=== PATIENT | female | born 1980 | race Two or more races ===

== ENCOUNTER → 2020-06-28 | Outpatient (CLI) | payer OTHER, SELFPAY ==
[2020-07-04 14:42] LABS: HPV Reflexed? NOT INDICATED
== END | disposition home or self-care (01) ==
LOC: LABSPEC 14:15
PROVIDERS: Visit Provider Obstetrics & Gynecology
DX: Z12.4 Encounter for screening for malignant neoplasm of cervix (principal)
CPT/HCPCS: 88175; G0145

== ENCOUNTER 2025-05-04 17:12 | Emergency (ER) | payer OTHER, SELFPAY ==
[2025-05-04 17:14] VITALS: BP 112/70; PULSE 73; RESP 20; TEMP 36.7; O2SAT 83; BMI 35.8
[2025-05-04 17:19] VITALS: O2SAT 97
--- NOTE | 2025-05-04 17:21 | ED.VIS.CHEST ---
HPI History of Present Illness Chief Complaint: Chest Pain [facility] Medical History (Updated 05/04/25 @ 21:[address] Reuben Lin, DO) DVT (deep venous thrombosis) Home Medications ?Medication ?Instructions ?Recorded ?Last Taken ?Type metoclopramide HCl 5 mg tablet 5 mg PO Q8H PRN nausea and 05/04/25 Unknown Rx (Reglan) vomiting 4 days #12 tabs oxycodone 5 mg tablet 5 mg PO Q8H PRN pain 4 days #16 05/04/25 Unknown Rx tabs Allergy/AdvReac Type Severity Reaction Status Date / Time acetaminophen (From Tylenol) Allergy Hives Verified 05/04/25 17:18 Social History Smoking Status: Never smoker EXAM Physical Exam Const Vital Signs: 05/04/25 17:14 05/04/25 17:19 05/04/25 17:21 Temperature 98.1 F Temperature Source Oral Pulse Rate 73 Respiratory Rate 20 H Respiratory Effort Normal Non-Labored Blood Pressure 112/70 Blood Pressure Mean 84 Pulse Ox 83 97 Oxygen Delivery Method Room Air Room Air Oxygen Flow Rate (L/min) 05/04/25 17:42 05/04/25 18:10 05/04/25 19:00 Temperature Temperature Source Pulse Rate 80 65 Respiratory Rate 25 H 18 Respiratory Effort Blood Pressure 136/80 H 130/99 H Blood Pressure Mean 98 109 Pulse Ox 98 95 Oxygen Delivery Method Nasal Cannula Room Air Room Air Oxygen Flow Rate (L/min) 2 05/04/25 20:00 05/04/25 21:00 05/04/25 22:19 Temperature Temperature Source Pulse Rate 79 71 Respiratory Rate 17 16 Respiratory Effort Blood Pressure 130/99 H 125/80 H Blood Pressure Mean 109 95 Pulse Ox 95 95 Oxygen Delivery Method Room Air Room Air Oxygen Flow Rate (L/min) MDM MDM MDM Narrative Medical decision making narrative: HISTORY OF PRESENT ILLNESS: Chief complaint: Chest pain 44-year-old female history of DVT (missed Eliquis doses recently) presents with chest pain. She states she had sharp chest pain. Midsternal. Not exertional. This began approximately an hour prior to arrival. No recent cough fever or chills. No recent lower extremity edema, orthopnea or paroxysmal nocturnal dyspnea notes history of DVT but denies history of PE. Notes family history of PE denies estrogen use, hemoptysis, unilateral leg swelling, recent surgery or immobilization. Denies any bleeding diathesis. States she status post hysterectomy and has not had a period since this procedure. This was remote several years ago. Notes her last DVT was 5 years ago. REVIEW OF SYSTEMS: Pertinent positives: Chest pain Pertinent negatives: PHYSICAL EXAM: Nursing triage notes reviewed, Vital signs reviewed Constitutional: please see [facility] HENT: MMM Eyes: Pupils equal round and reactive to light, Extraocular muscles intact Neck: No stridor, no JVD, full neck ROM Lungs: Clear to auscultation, No wheezing or rales. No increased work of breathing, no conversational dyspnea, no accessory muscle use, no nasal flaring. No respiratory distress noted Heart: Regular rate and rhythm, No murmurs, No rubs and No gallops, 2+ distal pulses (radial, femoral, posterior tibial) in all extremities Abdomen: Soft, epigastric TTP but no rigidity, rebound or guarding, no obvious peritoneal signs, no palpable pulsatile abdominal masses, no auscultated abdominal bruit : No CVAT Extremities: No edema Neuro: No new focal neurological deficits, cranial nerves II through XII intact, 5/5 strength in all present extremities. Intact sensation to light touch in all present extremities, 2+ reflexes bilateral patella tendons. Skin: No rash or lesions noted MEDICAL DECISION MAKING: Chief Complaint: please see HPI External records reviewed: Reviewed prior cardiovascular testing Factors affecting care: DVT Social determinants of health: denies drug use History obtained from others: EMS per EMS IV was obtained and patient received aspirin, fentanyl nitro and Zofran and route Consults: none [facility] Narrative: The patient was initially hemodynamically stable, afebrile and nontoxic-appearing exam without focal cardiopulmonary normalities. No stigmata of aortic dissection, VTE, heart failure initial exam I considered the following differential diagnosis: ACS, arrhythmia, anemia, electrolyte disturbance, PE, aortic dissection, CHF, pneumothorax, pericarditis I obtained a broad lab and imaging workup to further determine if the patient was suffering from a life-threatening etiology. Did not treat the patient with additional medications initially as she had already received aspirin, Zofran, fentanyl and nitroglycerin per EMS. ALL IMAGES (IF OBTAINED) HAVE BEEN PERSONALLY REVIEWED AND INTERPRETED BY MYSELF. Initial EKG showed normal sinus rhythm rate of 67, normal axis, normal intervals, noted T wave inversions in 3 and aVF. High-sensitivity troponin is negative, no evidence of myocardial ischemiax2 CT of the chest no sign of acute PE, showed pancreatic inflammation CT scan abdomen pelvis shows acute pancreatic the patient no necrosis, abscess or mass Lipase grossly elevated consistent with acute pancreatitis BNP within norm limits no signs of heart failure CBC with leukocytosis suggestive of systemic inflammation, no anemia or thrombocytopenia BMP without evidence of significant electrolyte abnormalities, no anion gap, no acute kidney injury. The synthesis of the patient's history, physical exam, labs images suggest acute pancreatitis. Patient's pain improved after morphine. Nausea improved after Reglan. Upon reassessment and p.o. challenge patient was able to tolerate p.o. Patient's pain was well-controlled. Repeat abdominal exam remains benign. She was motivated to go home. Discussed risk and benefits of home-going versus admission. Patient agrees to return if symptoms change or worsen specifically with vomiting and severe pain. Strict return precaution will be discussed. Follow-up instructions discussed. Prescribed oxycodone via meds to beds. The patient and/or family, caregivers express understanding. The patient and/or family, caregivers agrees with the plan. Shared decision making: I will have a discussion with the patient and or visitors regarding risk/benefits of further testing or admission. They will be made aware of of the risk/benefits inherent in this decision they will be given the opportunity to voice understanding. Total critical care time today provided was at least 0 minutes. This excludes separately billable procedures. Critical care time (if documented) is secondary to the patient having high probability of clinically significant/life threatening deterioration in the patient's condition which required my urgent intervention. Impression: 1. Chest pain 2. History of DVT 3. Acute pancreatitis 4. Nausea vomiting Dispo: Discharge home This note was generated with [employer] dictation software. It may contain incorrect words, spelling, and punctuation that were not noted in review of the chart prior to signing. Lab Data Labs: Laboratory Results - last 24 hr 05/04/25 05/04/25 05/04/25 17:25 19:35 21:20 WBC 14.2 H RBC 4.95 Hgb 14.5 Hct 43.6 MCV 88.1 MCH 29.3 MCHC 33.3 RDW Std Deviation 42.9 RDW Coeff of Elina 13.3 Plt Count 297 MPV 10.0 Immature Gran % (Auto) 0.400 Neut % (Auto) 55.8 Lymph % (Auto) 34.1 Scott % (Auto) 8.4 Eos % (Auto) 1.1 Baso % (Auto) 0.2 Absolute Neuts (auto) 7.9 H Absolute Lymphs (auto) 4.85 H Nucleated RBC % 0 Sodium 142 Potassium 3.7 Chloride 103 Carbon Dioxide 26.7 Anion Gap 12 BUN 17 Creatinine 0.77 Estim Creat Clear Calc 105.61 Est GFR (MDRD) Non-Af 96 BUN/Creatinine Ratio 22.2 H Glucose 146 H Calcium 10.8 Troponin T High Sens < 6 Troponin T Hi Sens 2 Hr < 6 Troponin T Hi Sens 4Hr 8 NT pro BNP II 56 Lipase > 3000 H Radiography Diagnostic Testing: Clinical Impression(s) from Imaging Studies Chest CTA 05/04/25 17:33 IMPRESSION: No acute pulmonary emboli. No focal consolidations. Extensive inflammation about the pancreas concerning for acute pancreatitis. Consider CTAP for further evaluation. Left thyroid heterogenous lesion measuring 2.6 x 2.5 cm; consider dedicated thyroid ultrasound under nonemergent outpatient basis. Dr. Lin was notified by Shanon Lawrence at 7 pm EST on 05/04/25. Reading Location: [facility] Abdomen/Pelvis CT 05/04/25 20:30 IMPRESSION: Extensive inflammation and stranding about the pancreas concerning for acute pancreatitis. No abscess or necrosis is noted at this time although contrast phasing is not optimized to evaluate for pancreatic pathology. Reading Location: [facility] Discharge Plan Triage Chief Complaint: Chest Pain ED Provider: Reuben Lin Dx/Rx/DC Orders Instructions: Pancreatitis Acute Dc Prescriptions: New metoclopramide HCl [Reglan] 5 mg tablet 5 mg PO Q8H PRN (Reason: nausea and vomiting) 4 Days Qty: 12 0RF oxycodone 5 mg tablet 5 mg PO Q8H PRN (Reason: pain) 4 Days Qty: 16 0RF Primary Care Provider: Donna Allan NP Referrals: Donna Allan NP, COLLISION TECHNICIAN-C [Primary Care Provider] - Activity Restrictions/Additional Instructions: Thank you for trusting us with your care today! Your presentation is consistent with acute pancreatitis. This is inflammation of your pancreas. This is treated with bowel rest including fasting and a slow return to normal diet. Recommend first a clear liquid diet. Then eat food as tolerated Please take Tylenol (2 pills, 650 mg), ibuprofen (2 pills, 400 mg) every 6 hours as needed for pain and fever control. Please return to the emergency department if your symptoms change or worsen. Please follow with your primary care physician for further outpatient evaluation and management. Print Language: Citizen Of [place] Disposition Disposition: Home, Self Care
--- NOTE | 2025-05-04 17:33 | CT_ITS ---
PROCEDURE: CTA CHEST W/WO CONTRAST 05/04/2025 REASON FOR EXAM: CHEST PAIN HX OF DVT TECHNIQUE: Procedure Code: CTCTACHWW Modality: CT Procedure: CTA CHEST W/WO CONTRAST Multiplanar Sagittal and Coronal images were obtained. CONTRAST: 100 mL of Isovue 370 One or more dose reduction techniques were used (e.g., Automated exposure control, adjustment of the mA and/or kV according to patient size, use of iterative reconstruction technique). RADIATION DOSE SUMMARY: DLP: 465 mGycm COMPARISON: none FINDINGS: PULMONARY ARTERIES: No evidence of pulmonary embolism. LUNGS AND PLEURA: No consolidations. No definite pulmonary edema. No mass or nodule. No pleural effusion. No pneumothorax. MEDIASTINUM: No lymphadenopathy or mass. The heart shows no acute findings. The aorta shows no acute findings. The pulmonary trunk, and branches of the vessels in the mediastinum are within normal limits. SUPRACLAVICULAR AND AXILLARY: No abnormalities seen in these regions. No mass or significant lymphadenopathy. UPPER ABDOMEN: Extensive inflammation about the pancreas concerning for acute pancreatitis. Gallbladder is surgically removed. Small hiatal hernia. BONES AND SOFT TISSUES: The ribs are unremarkable. The visualized spine shows no significant acute findings. No focal bony mass lesions noted. Left thyroid heterogenous lesion measuring 2.[address]/CTA Chest W/WO Contrast IMPRESSION: No acute pulmonary emboli. No focal consolidations. Extensive inflammation about the pancreas concerning for acute pancreatitis. C onsider CTAP for further evaluation. Left thyroid heterogenous lesion measuring 2.6 x 2.5 cm; consider dedicated thy roid ultrasound under nonemergent outpatient basis. Dr. Lin was notified by Shanon Lawrence at 7 pm EST on 05/04/25. Reading Location: [facility]
--- NOTE | 2025-05-04 17:33 | EKG12_ITS ---
Test Reason : CHEST PAIN Blood Pressure : */* mmHG Vent. Rate : 67 BPM Atrial Rate : 67 BPM P-R Int : 142 ms QRS Dur : 78 ms QT Int : 390 ms P-R-T Axes : 36 40 -2 degrees QTcB Int : 412 ms Normal sinus rhythm Normal ECG Confirmed by Leonard Chawla ([id number]), editorial manager RAHUL AMEZQUITA ([id number]) on 05/06/2025 6:45:12 AM Referred By: Confirmed By: Leonard Chawla
[2025-05-04 18:04] LABS: Hematocrit 43.6 % (37-47); Hemoglobin 14.5 g/dL (12.0-15.0); Immature Granulocytes Count 0.060 X10^3/uL (0.0-0.0); Mean Corp Hgb Conc 33.3 g/dL (32-36); Mean Corpuscular Volume 88.1 fL (81-99); Mean Platelet Vol. 10.0 fl (6.2-12.0); NRBC Flagged by Analyzer 0 % (0-5); Platelet Count 297 K/mm3 (150-450); RBC Distribution Width CV 13.3 % (11.6-14.6); RBC Distribution Width SD 42.9 fl (35.1-43.9); Red Blood Count 4.95 M/mm3 (4.2-5.4); White Blood Count 14.2 K/mm3 (4.4-11.0)
[2025-05-04 18:10] VITALS: BP 136/80; PULSE 80; RESP 25; O2SAT 98
[2025-05-04 18:19] LABS: BUN 17 mg/dL (4-19); Glucose 146 mg/dL (70-99)
[2025-05-04 18:20] LABS: Anion Gap 12 (5-15); BUN/Creat Ratio 22.2 RATIO (10-20); Calcium,Total 10.8 mg/dL (7.6-11.0); Carbon Dioxide 26.7 mmol/L (21.0-32.0); Chloride 103 mmol/L (98-108); Estimated Creatinine Clearance 105.61 ml/min (50-250); Potassium 3.7 mmol/L (3.3-5.1); Pro- Brain NATRIURETIC PEPTIDE 56 pg/mL (<=450); Troponin T High Sensitivity < 6 ng/L (<=14)
[2025-05-04 19:00] VITALS: BP 130/99; PULSE 65; RESP 18; O2SAT 95
[2025-05-04 20:00] VITALS: BP 130/99; PULSE 79; RESP 17; O2SAT 95
[2025-05-04 20:11] LABS: Lipase > 3000 U/L (13-75)
--- NOTE | 2025-05-04 20:30 | CT_ITS ---
PROCEDURE: ABDOMEN/PELVIS WITHOUT CONT 05/04/2025 REASON FOR EXAM: ABDOMINAL PAIN, CONCERN FOR ACUTE PANCREATITIS TECHNIQUE: Procedure Code: CTABDPEL Modality: CT Procedure: ABDOMEN/PELVIS WITHOUT CONT Noncontrast technique limits evaluation of the abdominal and pelvic viscera. Coronal and Sagittal reconstruction series were provided. One or more dose reduction techniques were used (e.g., Automated exposure control, adjustment of the mA and/or kV according to patient size, use of iterative reconstruction technique). RADIATION DOSE SUMMARY: DLP: 598 mGycm COMPARISON: none FINDINGS: Limited sections of the lung bases demonstrate no focal pulmonary mass or consolidations. The liver, spleen, and both adrenal glands demonstrate no acute findings. Extensive inflammation and stranding about the pancreas concerning for acute pancreatitis. No abscess or necrosis is noted at this time although contrast phasing is not optimized to evaluate for pancreatic pathology. The gallbladder is surgically removed. Small hiatal hernia; otherwise stomach is unremarkable. The small bowel loops are not dilated. The appendix is normal. No colonic obstruction. Colonic diverticulosis without acute diverticulitis. There is no free air or significant free fluid. The kidneys are unremarkable. The urinary bladder is partially distended. The pelvic structures are intact. There is no solid pelvic mass. No significant lymphadenopathy. The aorta and IVC demonstrate no acute findings. Visualized osseous structures demonstrate no acute abnormality. Small fat containing umbilical hernia. CT/Abdomen/Pelvis without Cont IMPRESSION: Extensive inflammation and stranding about the pancreas concerning for acute pa ncreatitis. No abscess or necrosis is noted at this time although contrast phasing is not optimized to evaluate for pancreatic pathology. Reading Location: [id number]
[2025-05-04 20:35] LABS: Troponin T High Sens 2 HR < 6 ng/L (<=14)
[2025-05-04 21:00] VITALS: BP 125/80; PULSE 71; RESP 16; O2SAT 95
[2025-05-04 22:09] LABS: Troponin T High Sens 4 HR 8 ng/L (<=14)
[2025-05-04 22:41] LABS: AST(SGOT) 656 U/L (<=31); Alanine Aminotransfer ALT/SGPT 467 U/L (<=34); Albumin, Serum 4.1 g/dL (3.5-5.0); Alkaline Phosphatase 210 U/L (35-104); Bilirubin, Direct 1.54 mg/dL (0.00-0.30); Globulin 2.9 g/dL (2.2-4.2)
== END 2025-05-04 22:33 | disposition home or self-care (01) ==
PROVIDERS: Emergency Provider Emergency Medicine; PCP Nurse Practitioner Family; Visit Provider Emergency Medicine
DX: R07.9 Chest pain, unspecified (principal); Z86.718 Personal history of other venous thrombosis and embolism; R11.2 Nausea with vomiting, unspecified; K85.90 Acute pancreatitis without necrosis or infection, unspecified; Z79.01 Long term (current) use of anticoagulants; Z90.710 Acquired absence of both cervix and uterus
CPT/HCPCS: 71275; 74176; 80048; 80076; 83690; 83880; 84484; 85025; 93005; 96374; 96375; 99285; Q9967; A4216; J2405